=== PATIENT | female | born 1950 | race Caucasian/White ===

== ENCOUNTER 2017-03-04 19:11 | Emergency (ER) | payer MEDICARE, BC ==
[~2017-03-04] VITALS: Ht 165.1 cm; Wt 83.6 kg
[~2017-03-04 19:11] MED LIST: BENA25CA2 PO; DIPH25CA PO; EPIP0.3I IM; FAMO1TAB73 PO; POTA10TA2 PO; PRED-503 PO; PRED20 PO
[2017-03-04 19:14] VITALS: BP 163/81; PULSE 128; RESP 16; TEMP 98; O2SAT 97
[2017-03-04] MEDS ORDERED: FAMOTIDINE 20 MG/2 ML VIAL IV PUSH ONE (19:45)
[2017-03-04] MEDS ORDERED: diphenhydrAMINE HCL 50 MG/ML VIAL IVP ONE (19:45)
[2017-03-04] MEDS ORDERED: EPINEPHrine HCL (1:1000) 1 MG/ML VIAL IM ONE (19:45)
[2017-03-04] MEDS ORDERED: SODIUM CHLORIDE 0.9% FLUSH 10 ML FLUSH IV FLUSH PRN (19:45)
[2017-03-04] MEDS ORDERED: methylPREDNISolone SOD SUCC 125 MG/2 ML VIAL IV PUSH ONE (19:45)
--- NOTE | 2017-03-04 19:52 | PD ---
HPI Chief Complaint: Allergic/Adverse Reaction Time Seen by Provider: 19:20 Travel History International Travel<30 days: No Contact w/Intl Traveler<30days: No Traveled to known affect area: No History of Present Illness HPI The patient was seen and examined in the presence of the nurse. This patient complains of allergic reaction. 2 days ago she had very prominent swelling of her lower lip diffusely. She took a cell phone picture of herself and this clearly looks like angioedema. She gave herself an EpiPen and got improvement. Yesterday she was doing well. Today she is got redness on her upper arms and feels like she's got some swelling in her throat area. No wheezing. She had 2 episodes of angioedema a year ago but none since. Symptom severity is moderate. Duration 2 days. Symptoms were helped with EpiPen as and alleviating factor. No exacerbating factors. PFSH Past Medical History Medical History: Denies Significant Hx Diminished Hearing: No Immunizations Current: Yes Tetanus Vaccination: Unknown Influenza Vaccination: No ?: Not Menopausal: Yes Past Surgical History Surgical History: No Previous Surgery Social History Alcohol Use: No Tobacco Use: No Substance Use: No Allergies-Medications (Allergen,Severity, Reaction): Coded Allergies: penicillin G (Verified Allergy, Severe, hives, 03/04/17) Reported Meds & Prescriptions Reported Meds & Active Scripts Active Prednisone 20 Mg Tab 60 Mg PO DAILY Take 40 mg (2 tablets) daily for 5 days Diphenhydramine (Diphenhydramine HCl) 25 Mg Cap 2 Tab PO ONCE PRN Epipen 2-Preston Inj (Epinephrine) 0.3 Mg/0.3 Ml Pfpen 0.3 Mg IM ONCE PRN Reported Benadryl (Diphenhydramine HCl) 25 Mg Cap 25 Mg PO Q6H PRN Review of Systems General / Constitutional: No: Fever Eyes: No: Visual changes HENT: No: Headaches Cardiovascular: No: Chest Pain or Discomfort Respiratory: No: Shortness of Breath Gastrointestinal: No: Abdominal Pain Genitourinary: No: Dysuria Musculoskeletal: No: Pain Skin: Positive Rash, Positive Hives Neurologic: No: Weakness Psychiatric: No: Depression Endocrine: No: Polydipsia Hematologic/Lymphatic: No: Easy Bruising Physical Exam Narrative GENERAL: Well-nourished, well-developed patient in no apparent distress. SKIN: Focused skin assessment reveals macular erythema of the upper extremities and face. Skin is Warm and dry. HEAD: Atraumatic. Normocephalic. EYES: Pupils equal and round. No scleral icterus. No injection or drainage. ENT: No nasal bleeding or discharge. Mucous membranes pink and moist. Uvula is midline without swelling. NECK: Trachea midline. No JVD. CARDIOVASCULAR: Regular rate and rhythm. No murmur appreciated. RESPIRATORY: No accessory muscle use. Clear to auscultation. Breath sounds equal bilaterally. GASTROINTESTINAL: Abdomen soft, non-tender, nondistended. Hepatic and splenic margins not palpable. MUSCULOSKELETAL: No obvious deformities. No clubbing. No cyanosis. No edema. NEUROLOGICAL: Awake and alert. No obvious cranial nerve deficits. Motor grossly within normal limits. Normal speech. PSYCHIATRIC: Appropriate mood and affect; insight and judgment normal. Data Data Last Documented VS Vital Signs Date Time Temp Pulse Resp B/P (MAP) Pulse Ox O2 Delivery O2 Flow Rate FiO2 03/04/17 20:20 120 20 169/89 (115) 95 03/04/17 19:23 Nasal Cannula 03/04/17 19:14 98.0 Orders Orders Iv Access Insert/Monitor (03/04/17 19:31) Diphenhydramine Inj (Benadryl Inj) (03/04/17 19:45) Methylprednisolone So Succ Inj (Solumedr (03/04/17 19:45) Famotidine Inj (Pepcid Inj) (03/04/17 19:45) Sodium Chloride 0.9% Flush (Ns Flush) (03/04/17 19:45) Epinephrine (1:1000) Inj (Adrenalin (1:1 (03/04/17 19:45) Decision Analyst / Telemetry BRIONNA.[id number] (03/04/17 19:31) Electrocardiogram (03/04/17 ) [facility] Medical Decision Making Medical Screen Exam Complete: Yes Emergency Medical Condition: Yes Medical Record Reviewed: Yes Differential Diagnosis Allergic reaction, Nolan-Dave syndrome, dress syndrome Narrative Course I have reviewed the patient's electronic medical record. Reviewed her last visit which was February 2016 for angioedema IV placed I gave her dose of intramuscular epinephrine I gave her dose of IV Solu-Medrol and IV Benadryl and IV Tagamet Extended cardiac monitoring reveals regular tachycardia Frequent and multiple rechecks done Patient's allergic reaction has essentially resolved. The redness is gone away and there is no swelling of her face or neck area She feels improved However she's had persistent tachycardia in the 120s He is not having any chest pain or presyncopal symptoms or palpitations. She feels well and wants to go home. I discussed further cardiac monitoring but she really feels well and wants to go. I have advised her to bring her back if she develops any lightheadedness or chest pain or any other symptoms such as syncope He agrees to do so she is going to track her heart rate and blood pressure over the next few days. She is in a call her primary physician Monday morning for follow-up Any worsening of advised him to come back I gave them a prescription for prednisone I did an EKG which suggests ectopic atrial tachycardia, features of left bundle- branch block present. There are no prior EKGs to compare on this patient. I reviewed the up-to-date database and recommendations initially for outpatient with this condition and no symptoms as observation. Should she become symptomatic beta blockade could be considered. Diagnosis Primary Impression: Allergic reaction Qualified Codes: T78.40XA - Allergy, unspecified, initial encounter Additional Impression: Tachycardia, unspecified Additional Instructions: The patient was advised to follow up with their physician and return if they worsen. Check and recorded pulse and blood pressure frequently Return for any worsening symptoms Take prednisone for 3 days Use Benadryl as needed Med/Other Pt SpecificInfo: Prescription(s) given Scripts Prednisone (Prednisone) 20 Mg Tab 60 MG PO DAILY, #9 TAB 0 Refills Take 40 mg (2 tablets) daily for 5 days Prov: Kvng Martinez MD 03/04/17 Disposition: 01 DISCHARGE HOME Condition: Stable Kvng Martinez MD Mar 04, 2017 19:52
[2017-03-04 20:20] VITALS: BP 169/89; PULSE 120; RESP 20; O2SAT 95
[2017-03-04 21:35] VITALS: BP 145/82; PULSE 120; RESP 18; TEMP 97.8; O2SAT 98
[2017-03-04] MEDS ORDERED: PRED20 PO (21:46)
--- NOTE | 2017-03-05 11:53 | EKG ---
Date Performed: 03/04/2017 Time Performed: 20:40:35 PTAGE: 66 years EKG: ECTOPIC ATRIAL TACHYCARDIA LEFT BUNDLE BRANCH BLOCK ABNORMAL ECG INTERPRETATION BASED ON A DEFAULT AGE OF 39 YEARS PREVIOUS TRACING 02/18/2016 Compared to the prior study, the rate is faster. DOCTOR: Pelon Dennis Interpretating Date/Time 03/05/2017 11:51:06
== END 2017-03-04 22:04 | disposition home or self-care (01) ==
LOC: PHED 19:11
DX: T78.40XA Allergy, unspecified, initial encounter (principal); R00.0 Tachycardia, unspecified; I44.7 Left bundle-branch block, unspecified; Z88.0 Allergy status to penicillin
CPT/HCPCS: 93005; 96372; 96374; 96375; 99284; J0171; J1200; J2930